=== PATIENT | female | born 1990 | race Caucasian/White ===

== ENCOUNTER 2019-03-17 03:05 | Emergency (ER) | payer SELFPAY ==
[2019-03-17 03:06] VITALS: BP 110/73; PULSE 77; RESP 16; TEMP 36.5; O2SAT 99; BMI 25.2
--- NOTE | 2019-03-17 03:35 | ED.DCSUM_ITS ---
History of Present Illness Chief Complaint: Anxiety Informant: Patient Onset: Today Current Severity: Mild Maximum Severity: Severe Narrative: Patient presents after panic attack at home. She states she woke up suddenly with numbness and tingling in both arms, shortness of breath, heart racing. She went to the bathroom to look herself in the mirror noted her face to be flushed and her eyes bloodshot. She called a friend who stated that she was hyperventilating on the phone. She talked her through her breathing. By the time she arrived here her symptoms are improved. Patient does report this is the third panic attack she is had the last 2 months. She has been under increased stress recently but thought she had a good day yesterday and felt okay when she went to bed. - Past Medical History (1) Migraine Status: Chronic (2) Anxiety Status: Chronic Past Medical History - Allergies and Home Meds Allergies/Adverse Reactions: Allergies No Known Allergies Allergy (Verified 03/17/19 03:09) Primary Care Physician: Care Physician,No Primary [Primary Care Provider] - Prior records reviewed: Yes Lives: Alone Smoking Status: Never smoker Review of Systems General: Denies: Chills, Fever Eyes: Denies: Visual changes - bilaterally ENT: Denies: Bilateral ear pain Cardiovascular: Reports: Palpitations, Heart racing Respiratory: Reports: Dyspnea Gastrointestinal: Denies: Vomiting, Diarrhea Musculoskeletal: Denies: Extremity Pain Skin: Denies: Rash Neurological: Reports: Parasthesia, Numbness Psych: Reports: Anxiety Physical Exam Vital Signs/Narrative: Vital Signs Temp Pulse Resp BP Pulse Ox 03/17/19 03:06 97.7 F L 77 16 110/73 99 Inital Vital Signs reviewed: Yes General: Well nourished, Well developed Head: Normocephalic ENT: Moist mucous membranes Neck: Supple Cardiovascular: Regular rate, Regular rhythm Respiratory: No distress, CTA bilaterally Abdomen: Soft, Nontender Extremities: Nontender Skin: Normal color, No rash Neurological: Alert, Oriented x3 Psychological: Normal affect Diagnostic/Tx/Re-eval Laboratory Results 03/17/19 03/17/19 03:30 03:30 WBC 5.9 RBC 4.46 Hgb 14.1 Hct 41.4 MCV 92.8 MCH 31.6 MCHC 34.1 RDW Std Deviation 39.8 RDW Coeff of Johnie 11.7 Plt Count 234 MPV 10.5 Immature Gran % (Auto) 0.300 Neut % (Auto) 56.7 Lymph % (Auto) 32.0 Mcnairy % (Auto) 8.4 Eos % (Auto) 2.1 Baso % (Auto) 0.5 Absolute Neuts (auto) 3.3 Absolute Lymphs (auto) 1.87 Nucleated RBC % 0 Sodium 140 Potassium 3.7 Chloride 108 H Carbon Dioxide 27.0 Anion Gap 5 BUN 10 Creatinine 0.64 Estim Creat Clear Calc 99.64 Est GFR (MDRD) Af Amer 143 Est GFR (MDRD) Non-Af 118 BUN/Creatinine Ratio 15.6 Glucose 91 Calcium 8.5 TSH 2.26 - Medical Decision Making Patient has not had 3 panic attacks in the last 2 months with no prior work-up. Laboratory evaluation is undertaken and is unremarkable. On repeat evaluation patient is resting comfortably. She will be given a prescription for Ativan that she can have on hand if needed. She is also given information for the behavioral health services department to help with her anxiety. ED Disposition - Plan for ED Patient: Disposition: Home or Assisted Living Diagnosis: Panic attack Instructions: Panic Attack Prescriptions: Lorazepam [Ativan] 0.5 mg PO TID PRN #10 tablet PRN Reason: Anxiety Referrals: Behavioral,Health [facility] [GROUP OF PHYSICIANS] - As Needed
[2019-03-17 03:39] LABS: Absolute Lymphocyte Count 1.87 X10^3/uL (0.83-4.51); Absolute Neutrophil Count 3.3 X10^3/uL (2.0-7.7); Basophil# 0.03 X10^3/uL; Basophil% 0.5 % (0-1); Eosinophil# 0.12 X10^3/uL; Eosinophils% 2.1 % (0-5); Hematocrit 41.4 % (37-47); Hemoglobin 14.1 g/dL (12.0-15.0); Lymphocyte # 1.87 X10^3/ul (4.0); Mean Corp Hgb Conc 34.1 g/dL (32-36); Mean Corpuscular Hgb 31.6 pg (27.0-32.0); Mean Corpuscular Volume 92.8 fL (81-99); Mean Platelet Vol. 10.5 fl (6.2-12.0); Monocyte# 0.49 X10^3/uL; Monocyte% 8.4 % (0-10); NRBC Flagged by Analyzer 0 % (0-5); Neutrophil # 3.32 X10^3/uL (2.7-7.7); Neutrophil % 56.7 % (47-70); Platelet Count 234 K/mm3 (150-450); RBC Distribution Width CV 11.7 % (11.6-14.6); RBC Distribution Width SD 39.8 fl (35.1-43.9); Red Blood Count 4.46 M/mm3 (4.2-5.4); White Blood Count 5.9 K/mm3 (4.4-11.0)
[2019-03-17 04:05] LABS: Anion Gap 5 (5-15); BUN 10 mg/dL (7-18); BUN/Creat Ratio 15.6 RATIO (10-20); Calcium,Total 8.5 mg/dL (8.5-10.1); Chloride 108 mmol/L (98-107); Creatinine, Serum 0.64 mg/dL (0.55-1.02); EST Glomerular Filtration Rate 118 mL/min (>60); Est Glom Filt Rate - Afr Amer 143 mL/min (>60); Estimated Creatinine Clearance 99.64 ml/min; Glucose 91 mg/dL (74-106); Potassium 3.7 mmol/L (3.5-5.1); Sodium Level 140 mmol/L (136-145); Thyroid Stim Hormone (TSH) 2.26 uIU/mL (0.358-3.74)
[2019-03-17 04:19] VITALS: RESP 16
== END 2019-03-17 04:51 | disposition home or self-care (01) ==
PROVIDERS: Emergency Provider Emergency Medicine
DX: F41.0 Panic disorder [episodic paroxysmal anxiety] (principal); G43.909 Migraine, unspecified, not intractable, without status migrainosus; F41.9 Anxiety disorder, unspecified; Z79.899 Other long term (current) drug therapy
CPT/HCPCS: 80048; 84443; 85025; 99282